=== PATIENT | female | born 1990 | race Caucasian/White ===

== ENCOUNTER → 2016-05-09 | Outpatient (CLI) | payer BC | END | disposition home or self-care (01) | LOC: C.LABMFLN 08:02 | PROVIDERS: ATTEND Obstetrics & Gynecology | DX: Z32.01 Encounter for pregnancy test, result positive (principal) ==

== ENCOUNTER → 2016-06-13 | Outpatient (CLI) | payer BC ==
[2016-06-13 14:25] LABS: URINE APPEARANCE TURBID (CLEAR); URINE BILIRUBIN NEG (NEG); URINE COLOR YELLOW; URINE EPITHELIAL CELL AUTO >30 /lpf (0-5); URINE NITRITE NEG (NEG); URINE PH 7.5 (4.5-7.5); URINE SPECIFIC GRAVITY 1.017 (1.000-1.030); UROBILINOGEN NEG (NEG)
[2016-06-13 14:41] LABS: MANUAL MICROSCOPIC REQUIRED? NO; REVIEW REQ? NO; SULFASALICYLIC ACID NEG (NEG)
[2016-06-16 00:15] LABS: CHLAMYDIA TRACH RNA*** NOT DETECTED (NOT DETECTED); GC (NEIS GONORRHOEAE)RNA** NOT DETECTED (NOT DETECTED)
== END | disposition home or self-care (01) ==
LOC: C.LABSPEC 13:49
PROVIDERS: ATTEND Obstetrics & Gynecology
DX: Z34.81 Encounter for supervision of other normal pregnancy, first trimester (principal); O20.0 Threatened abortion

== ENCOUNTER → 2016-06-13 | Outpatient (CLI) | payer BC | END | disposition home or self-care (01) | LOC: C.PAPS 13:17 | PROVIDERS: ATTEND Obstetrics & Gynecology | DX: Z34.81 Encounter for supervision of other normal pregnancy, first trimester (principal) ==

== ENCOUNTER → 2016-06-15 | Outpatient (CLI) | payer BC ==
[2016-06-15 12:50] LABS: BASO % 0.2 %; BASO ABS # 0.02 K/uL (0-0.2); COMPLETE YES; EOS % 0.7 %; HEMATOCRIT 39.6 % (37-47); IG% 0.1 %; LYMPH % 10.7 %; MEAN CELL VOLUME 82.5 fL (80-100); MEAN CORPUSCULAR HEMOGLOBIN 28.5 pg (25-34); MEAN CORPUSCULAR HGB CONC 34.6 g/dl (32-36); MEAN PLATELET VOLUME 10.9 fL (7.4-10.4); MONO % 7.8 %; NEUT % 80.5 %; PLATELET COUNT 179 K/uL (130-400); WHITE BLOOD COUNT 8.42 K/uL (4.8-10.8)
== END | disposition home or self-care (01) ==
LOC: C.LABMFLN 10:25
PROVIDERS: ATTEND Obstetrics & Gynecology
DX: O20.0 Threatened abortion (principal)

== ENCOUNTER → 2016-10-17 | Outpatient (CLI) | payer BC ==
[~2016-10-17] MED LIST: CETI10TA84 PO; OXYM0.0592 NAE
[2016-10-17 13:12] LABS: GTGD 50 Grams
[2016-10-17 14:28] LABS: URINE APPEARANCE CLEAR (CLEAR); URINE BILIRUBIN NEG (NEG); URINE COLOR YELLOW; URINE EPITHELIAL CELL AUTO >30 /lpf (0-5); URINE NITRITE NEG (NEG); URINE PH 7.5 (4.5-7.5); URINE SPECIFIC GRAVITY 1.017 (1.000-1.030); UROBILINOGEN NEG (NEG)
[2016-10-17 14:32] LABS: MANUAL MICROSCOPIC REQUIRED? NO; REVIEW REQ? NO
== END | disposition home or self-care (01) ==
LOC: C.LAB1850 09:22
PROVIDERS: ATTEND Obstetrics & Gynecology
DX: Z34.83 Encounter for supervision of other normal pregnancy, third trimester (principal)

== ENCOUNTER → 2016-11-13 | Outpatient (CLI) | payer BC | END | disposition home or self-care (01) | LOC: C.LABSPEC 12:24 | PROVIDERS: ATTEND Obstetrics & Gynecology | DX: O62.2 Other uterine inertia (principal) ==

== ENCOUNTER → 2016-11-14 | Outpatient (CLI) | payer BC ==
[2016-11-14 18:29] LABS: URINE TOTAL PROTEIN 21.9 mg/dl (0-11.9)
== END | disposition home or self-care (01) ==
LOC: C.LABMFLN 16:12
PROVIDERS: ATTEND Obstetrics & Gynecology
DX: O12.10 Gestational proteinuria, unspecified trimester (principal)

== ENCOUNTER → 2016-11-15 | Outpatient (CLI) | payer BC ==
[2016-11-15 17:53] LABS: HEMATOCRIT 33.7 % (37-47); MEAN CELL VOLUME 85.3 fL (80-100); MEAN CORPUSCULAR HEMOGLOBIN 27.1 pg (25-34); MEAN CORPUSCULAR HGB CONC 31.8 g/dl (32-36); MEAN PLATELET VOLUME 10.9 fL (7.4-10.4); PLATELET COUNT 181 K/uL (130-400); RED BLOOD COUNT 3.95 M/uL (4.2-5.4); WHITE BLOOD COUNT 8.58 K/uL (4.8-10.8)
[2016-11-15 18:36] LABS: ALT/SGPT 15 U/L (12-78); BLOOD UREA NITROGEN 8 mg/dl (7-18); BUN/CREATININE RATIO 16.1 (10-20); CALCIUM 7.9 mg/dl (8.5-10.1); CARBON DIOXIDE 25 mmol/L (21-32); CHLORIDE 105 mmol/L (98-107); CREATININE 0.49 mg/dl (0.60-1.20); GLUCOSE 109 mg/dl (70-99); POTASSIUM 3.8 mmol/L (3.5-5.1); SODIUM 138 mmol/L (136-145)
[2016-11-15 18:38] LABS: ALB/GLOB RATIO 0.8 (0.9-2); ALKALINE PHOSPHATASE 91 U/L (45-117); AST/SGOT 15 U/L (15-37)
== END | disposition home or self-care (01) ==
LOC: C.LABMFLN 16:22
PROVIDERS: ATTEND Obstetrics & Gynecology
DX: O12.10 Gestational proteinuria, unspecified trimester (principal)

== ENCOUNTER 2017-01-02 18:42 | Inpatient (IN) | payer BC ==
[~2017-01-02] VITALS: Ht 167.6 cm; Wt 67.5 kg
[2017-01-02] MEDS ORDERED: LACTATED RINGER'S 1000ML 1,000 ML IV PRN (18:58)
[2017-01-02] MEDS ORDERED: PENICILLIN G POTASSIUM IV 6 MU in DEXTROSE 5% 250ML 250 ML IV ONE (19:15)
[2017-01-02] MEDS ORDERED: LACTATED RINGER'S 1000ML 1,000 ML IV SCH (19:15)
[2017-01-02] MEDS ORDERED: EpHEDrine SULFATE INJ 50 MG/ML AMP ONE (19:31)
[2017-01-02] MEDS ORDERED: BUPIVACAINE 0.25% 30 ML VIAL ONE (19:31)
[2017-01-02] MEDS ORDERED: FENTANYL CITRATE INJ 50 MCG/1 ML 2 ML VIAL ONE (19:32)
[2017-01-02] MEDS ORDERED: FENTANYL 2MCG/ML ROPIV 1.25MG/ML 100ML BAG EPI ONE (19:32)
[2017-01-02 19:44] LABS: HEMATOCRIT 35.1 % (37-47); MEAN CORPUSCULAR HGB CONC 32.5 g/dl (32-36); MEAN PLATELET VOLUME 11.4 fL (7.4-10.4); PLATELET COUNT 153 K/uL (130-400); RED BLOOD COUNT 4.39 M/uL (4.2-5.4); WHITE BLOOD COUNT 12.86 K/uL (4.8-10.8)
[2017-01-02] MEDS ORDERED: BUTORPHANOL TARTRATE 1 MG/ML VIAL IV ONE (19:45)
[2017-01-02 20:18] VITALS: Ht 167.6 cm; Wt 67.5 kg
[2017-01-02] MEDS ORDERED: LACTATED RINGER'S 1000ML 500 ML IV PRN (20:41)
[2017-01-02] MEDS ORDERED: NALOXONE HCL INJ 1 MG in SODIUM CHLORIDE 0.9% 1000ML 1,000 ML IV PRN (20:41)
[2017-01-02] MEDS ORDERED: FENTANYL 2MCG/ML ROPIV 1.25MG/ML 100ML BAG EPI PRN (20:45)
[2017-01-02] MEDS ORDERED: EpHEDrine SULFATE INJ 50 MG/ML AMP IV PRN (20:45)
[2017-01-02] MEDS ORDERED: NALBUPHINE HCL INJ 10 MG/ML AMP IV PRN (20:45)
[2017-01-02] MEDS ORDERED: ONDANSETRON INJ 2 MG/ML 2 ML VIAL IV PRN (20:45)
[2017-01-02] MEDS ORDERED: DiphenhydrAMINE HCL 50 MG/ML VIAL IV PRN (20:45)
[2017-01-02] MEDS ORDERED: NALOXONE HCL INJ 0.4 MG/1 ML VIAL/CARP IV PRN (20:45)
[2017-01-02] MEDS ORDERED: PENICILLIN G POTASSIUM IV 3 MU in DEXTROSE 5% 100ML 100 ML IV PRN (22:00)
[2017-01-02] MEDS ORDERED: OXYTOCIN 30 UNITS/500ML NSS IV ONE (23:36)
[2017-01-03] MEDS ORDERED: HYDROCORTISONE ACETATE 25 MG SUPP PR PRN (00:30)
[2017-01-03] MEDS ORDERED: SUPERCREAM 0.870 % 15GM JAR EXT PRN (00:30)
[2017-01-03] MEDS ORDERED: ACETAMINOPHEN 325 MG TAB PO PRN (00:30)
[2017-01-03] MEDS ORDERED: LANOLIN OINT EXT PRN ×2 (00:30)
[2017-01-03] MEDS ORDERED: OXYTOCIN 30 UNITS/500ML NSS IV PRN (00:30)
[2017-01-03] MEDS ORDERED: BENZOCAINE 20% AER SPR 82.5 GM CAN EXT PRN (00:30)
[2017-01-03] MEDS: IBUPROFEN 600 MG TAB PO PRN ×5 (00:40→23:12)
--- NOTE | 2017-01-03 00:53 | DELIVERY SUMMARY ---
DATE OF OPERATION: 01/03/2017 PREOPERATIVE DIAGNOSES: 1. Intrauterine at 39 plus weeks. 2. Group B streptococcus positive. 3. Active labor. POSTOPERATIVE DIAGNOSES: Same. PROCEDURES: 1. Epidural anesthesia. 2. Penicillin prophylaxis for group B streptococcus. 3. Amniotomy for clear fluid. 4. Normal spontaneous vaginal delivery. 5. Small left labial laceration with repair. SURGEON: MD Carlyle. ANESTHESIA: Epidural. ESTIMATED BLOOD LOSS: 350 mL. PROCEDURE IN DETAIL: Mayte presented to labor and delivery in active labor with category I strep. She underwent penicillin prophylaxis for GBS and an epidural. After she received her second dose, she was complete. An amniotomy was performed for copious amounts of clear fluid. When she became complete, she pushed for less than 10 minutes to deliver a viable male in PRINCE presentation. The nose and mouth were bulb suctioned on the perineum. There was no nuchal cord. The rest of the infant was then delivered without difficulty. There was immediate cry and the child was bigger, so placed on the maternal abdomen for drying and attention. The cord was clamped and cut at approximately 1 minute of life. Cord blood and segment were obtained. The placenta was delivered spontaneously intact with a 3-vessel cord. Cervix, sulci, rectum, and perineum were examined and found to be intact. A small left labial laceration was repaired with one figure of eight suture of 4-0 Vicryl. All sponge, lap and needle counts were correct x2. Apgars were 9 and 9. Estimated blood loss was 350 mL. Hemostasis with dilute Pitocin, and fundal massage. Mother and baby doing well at the end of the delivery. I attest to the content of the Intraoperative Record and any orders documented therein. Any exception s are noted below.
[2017-01-03 03:25] VITALS: BP 109/69; PULSE 85; TEMP 36.4
--- NOTE | 2017-01-03 07:07 | Progress Note ---
Subjective Jan 03, 2017. Subjective conversation w/ patient, physical exam, lab review Ambulation: ambulating normally Voiding: no voiding problems Passing Gas: Yes Diet Tolerance: Regular Diet Lochia: Small Feeding Type: Breast Feeding Pain: very crampy Objective Vital Signs Date Time Temp Pulse Resp B/P (MAP) Pulse Ox O2 Delivery O2 Flow Rate FiO2 01/03/17 03:25 Room Air 01/03/17 03:25 36.4 85 18 109/69 (82) Room Air Physical Exam General Appearance: WELL-APPEARING, WD/WN, NO APPARENT DISTRESS Abdomen: non tender, soft Fundus: Firm, Non-Tender, Relation to Umbilicus (1 below u) Extremities: non-tender, normal inspection, no pedal edema Laboratory Results Last 24 Hours Test 01/02/17 19:35 White Blood Count 12.86 K/uL Red Blood Count 4.39 M/uL Hemoglobin 11.4 g/dL Hematocrit 35.1 % Mean Corpuscular Volume 80.0 fL Mean Corpuscular Hemoglobin 26.0 pg Mean Corpuscular Hemoglobin Concent 32.5 g/dl RDW Standard Deviation 41.3 fL RDW Coefficient of Variation 14.4 % Platelet Count 153 K/uL Mean Platelet Volume 11.4 fL Assessment and Plan Problem List Medical Problems: (1) Calculus Of Kidney Status: Chronic Post- Day#: 0 Continue Routine Care: Doing well. Routine care.
[2017-01-03 07:17] VITALS: BP 109/72; PULSE 78; TEMP 36.7; O2SAT 97
--- NOTE | 2017-01-03 07:48 | Anesthesia Procedure Note ---
Anesthesia Epidural Removal Nt Date & Time Jan 03, 2017 at 07:48 Vital Signs Pain Intensity: 1.0 Vital Signs Past 12 Hours Date Time Temp Pulse Resp B/P (MAP) Pulse Ox O2 Delivery O2 Flow Rate FiO2 01/03/17 07:17 36.7 78 16 109/72 (84) 97 Room Air 01/03/17 03:25 Room Air 01/03/17 03:25 36.4 85 18 109/69 (82) Room Air Notes Mental Status: alert / awake / arousable, participated in evaluation Nausea / Vomiting: adequately controlled Pain: adequately controlled Airway Patency, RR, SpO2: stable & adequate BP & HR: stable & adequate Hydration State: stable & adequate Neuraxial Anesthesia: was administered Anesthetic Complications: no major complications apparent, pt satisfied with anesthetic care Epidural: removed without complications, with tip intact
[2017-01-03] MEDS: PRENATAL VITAMIN TAB PO SCH (07:51)
[2017-01-03] MEDS: DOCUSATE SODIUM 100 MG CAP PO SCH ×2 (07:52→19:18)
[2017-01-03] MEDS: OXYCODONE/ACETAMINOPHEN 5-325 TAB PO PRN ×4 (10:16→23:12)
[2017-01-03 11:45] VITALS: BP 117/79; PULSE 87; TEMP 36.5; O2SAT 98
[2017-01-03 15:30] VITALS: BP 119/78; PULSE 81; TEMP 36.4
[2017-01-03 19:00] VITALS: BP 127/81; PULSE 89; TEMP 36.6
[2017-01-03 23:50] VITALS: BP 134/78; PULSE 84; TEMP 36.6; O2SAT 97
[2017-01-04] MEDS: IBUPROFEN 600 MG TAB PO PRN (05:57)
[2017-01-04] MEDS: OXYCODONE/ACETAMINOPHEN 5-325 TAB PO PRN (05:58)
[2017-01-04 06:39] LABS: HEMATOCRIT 31.3 % (37-47)
--- NOTE | 2017-01-04 07:23 | Progress Note ---
Subjective Jan 04, 2017. Subjective conversation w/ patient, physical exam, chart review, lab review Ambulation: ambulating normally Voiding: no voiding problems Passing Gas: Yes Diet Tolerance: Regular Diet Lochia: Moderate Feeding Type: Breast Feeding Pain: CONTROLLED Review of Systems Respiratory: No shortness of breath Cardiac: No chest pain Abdomen: No nausea, No vomiting Female : No dysuria Objective Vital Signs Date Time Temp Pulse Resp B/P (MAP) Pulse Ox O2 Delivery O2 Flow Rate FiO2 01/03/17 23:50 36.6 84 18 134/78 (96) 97 Room Air 01/03/17 23:50 97 Room Air 01/03/17 19:00 36.6 89 20 127/81 (96) Room Air 01/03/17 15:30 36.4 81 20 119/78 (92) Room Air 01/03/17 15:30 Room Air 01/03/17 11:45 36.5 87 16 117/79 (92) 98 Room Air 01/03/17 08:00 Room Air Physical Exam General Appearance: WELL-APPEARING, WD/WN, NO APPARENT DISTRESS Respiratory/Chest: lungs clear Cardiovascular: regular rate, rhythm Abdomen: normal bowel sounds, soft Fundus: Firm, Non-Tender, Relation to Umbilicus (3 BELOW U) Extremities: no calf tenderness Laboratory Results Last 24 Hours Test 01/04/17 06:11 Hemoglobin 9.3 g/dL Hematocrit 31.3 % Assessment and Plan Problem List Medical Problems: (1) Calculus Of Kidney Status: Chronic Post- Day#: 1 Continue Routine Care: - Vital Signs reviewed and WNL. - Hemoglobin 9.3 - Blood Type: O+, GBS +, Rubella Immune. - Pt is doing well clinically. - Encourage Ambulation, Monitor and Control pain with Motrin PRN, Resume regular diet, Monitor Lochia - Encourage Breast Feeding. - Pt counselled on discharge instructions THOMAS WOLF PGY1 FM RESIDENT Resident Physician Supervision Note: I interviewed and examined the patient. Discussed with Dr. wolf and agree with findings and plan as documented in the note. Any exceptions or clarifications are listed here: [None] Documented By: Carl Allen Resident Tracking Resident Involvement: Resident Care Provided Care Provided: OB Delivery
--- NOTE | 2017-01-04 07:50 | Discharge Instructions ---
Discharge Instructions Date of Service Jan 04, 2017. Admission Reason for Admission: Check Labor Discharge Discharge Diagnosis / Problem: VAGINAL DELIVERY Discharge Goals Goal(s): Routine recovery after delivery Medications Continue Dispensed Medications: supercream, dermaplast, tucks, lansinoh Activity Recommendations Activity Limitations: per Instructions/Follow-up section . Instructions / Follow-Up Instructions / Follow-Up ACTIVITY RECOMMENDATIONS: * Gradual return to full activity over the next 2-3 weeks. * No lifting - nothing heavier than baby over the next 2-3 weeks. * Do not engage in vigorous exercise, sexual activity or sports until cleared by your physician. * Do not drive or operate any motorized equipment until cleared by your physician. * You may shower/bathe daily. MEDICATIONS: For discomfort or pain, you may use Acetaminophen (Tylenol), Ibuprofen (Advil), or Naproxen (Aleve) following the package directions. For constipation you may use Colace following the package directions. BREAST CARE: If you are not breast feeding: * Wear a supportive bra 24 hours a day for one to two weeks. * Avoid stimulating your breasts and nipples as much as possible during the first few weeks after delivery. * When taking a shower, have the warm water hit your back, not breasts. * When your breasts feel full, apply ice packs. Usually three to four times a day helps ease the discomfort. * Take a mild pain medication (Tylenol / Motrin) when you are uncomfortable. If breast feeding: * Use breast milk to lubricate nipples. Lansinoh cream may be used for sore nipples. You do not need to remove cream prior to breast feeding. If using a different brand of cream, check the label for directions regarding removal of cream prior to nursing. * Wear a supportive bra. * If having problems with breasts or breast feeding, call a data virtualization consultant or your health care provider. EPISIOTOMY CARE: After delivery, if you have an episiotomy (stitches), the following steps will ease discomfort and aid healing. * For the first 24 hours after delivery, place ice packs next to your episiotomy to help reduce swelling. * After the first 24 hour-period, sitz baths, either portable or in the tub, are suggested. A shower with a shower arm sprayed over the episiotomy may be comforting. * Lisa care should be done after each voiding and bowel movement. Squirt warm water from a plastic bottle over the perineum (region of the body between the anus and urinary opening) and pat dry. * Use Dermoplast to ease discomfort. Shake container. [place] directly over the episiotomy. Place a Tucks on a clean sanitary pad next to your episiotomy. SPECIAL CARE INSTRUCTIONS: When you are discharged from the hospital, it is important for you to follow the instructions listed below: * During the first week at home, you should be able to care for yourself and your baby. In addition, the usual light household activities are encouraged. * Limit your activities to the way you feel. Do not try to clean the house or move furniture. Be sensible. * If you actively engage in sports and have done so up until the time of your delivery, you may resume these activities as soon as you feel able. This may take up to one month or even longer. Use good judgment. * Continue to take your vitamins for at least six weeks after the of your baby. * Your diet need not be limited unless you were on a special diet before your delivery. Breast-feeding mothers need around 2500 calories per day and at least 64-80 ounces of fluid per day (8 to 10 glasses). * You should eat foods from the four major food groups. Crash diets or fad diets are to be avoided. Eating lean meats, fresh fruits and vegetables, low-fat dairy products, high fiber foods and a regular exercise program, will help you get back to your pre- weight without putting your health at risk. * Constipation is sometimes a problem after delivery. Take a mild laxative as needed. If breast feeding, Milk of Magnesia is acceptable to use. You may use a suppository or Fleets enema if no episiotomy. * A daily shower or tub bath is suggested. Be sure to thoroughly and gently dry the perineum. * A bloody vaginal discharge will usually continue until around four weeks post . A small amount of bleeding may continue for as long as six weeks. Vaginal discharge changes from the bright red bleeding after delivery to pink then brownish and finally yellowish-pink before becoming white and disappearing. * Bleeding may increase with activity. Your first period may come in 4-8 weeks. If you are breast feeding, your period may be delayed even longer. * [place] (sex) can begin whenever both you and your partner feel comfortable and do not have any form of genital infection. It is recommended that you wait at least six weeks for internal and external healing to occur. If you have questions, please talk to your health care practitioner. A condom should be used to prevent infection and . * Foreplay, gentle intercourse and lubrication is very important the first several times to prevent pain. A water-based lubricant such as K-Y jelly or Astroglide may be used. * If you have RH negative blood and your baby is RH positive, you will receive RHOGAM by injection prior to discharge. The nurse will give you a card to keep with you that has the date and place that you received RHOGAM after delivery. * During your care, you had a Rubella screen done to check for the presence of rubella antibodies in your blood. If your test was negative, you will receive a Rubella vaccine prior to discharge. This vaccine may cause a fever, soreness at the injection site and flu-like symptoms. If these symptoms persist, notify your health care practitioner. is not advised for one month after a Rubella vaccine. * Verbalizes understanding of car seat law as reviewed with patient nursing. * Car Seat hand-out given and reviewed with patient by nursing. * Shaken baby information reviewed with patient by nursing. Call you doctor if: * Heavy bleeding (saturating several pads an hour) or passing clots the size of your fist. * A fever >101 degrees F (38.3 degrees C) on two occasions four hours apart and /or chills. * Unusual pain in the pelvic or vaginal areas. * "Baby Blues" lasting longer than two weeks. If you have any questions or concerns, call your health care practitioner at . FOLLOW UP VISIT: * Please call the office at to schedule a 6 week examination. It is important you keep this appointment. It is important for you to make arrangements for either yearly or twice yearly check-ups thereafter. Current Hospital Diet Patient's current hospital diet: Regular OB Diet Discharge Diet Recommended Diet: Regular Diet Pending Studies Studies pending at discharge: no Medical Emergencies . Who to Call and When: Medical Emergencies: If at any time you feel your situation is an emergency, please call 911 immediately. . Non-Emergent Contact Non-Emergency issues call your: Primary Care Provider . . "Provider Documentation" section prepared by Ermelinda Paz. . VTE Core Measure Inpt VTE Proph given/why not?: Treatment not indicated
[2017-01-04 08:20] VITALS: BP 110/73; PULSE 83; TEMP 36.5
[2017-01-04] MEDS: DOCUSATE SODIUM 100 MG CAP PO SCH (08:45)
[2017-01-04] MEDS: PRENATAL VITAMIN TAB PO SCH (08:45)
== END 2017-01-04 14:20 | disposition home or self-care (01) | DRG 775 ==
LOC: C.OPB 18:42 → C.LD 18:42 → C.OPB 19:00 → C.LD 19:00 → C.OBG 01-03 03:32
PROVIDERS: ADMIT Obstetrics & Gynecology; ATTEND Obstetrics & Gynecology
PROC: 0UQMXZZ Repair Vulva, External Approach (ICD-10-PCS; principal; 2017-01-03)
PROC: 10E0XZZ Delivery of Products of Conception, External Approach (ICD-10-PCS; principal; 2017-01-03)
DX: O99.824 Streptococcus B carrier state complicating childbirth (principal); Z37.0 Single live birth; O70.0 First degree perineal laceration during delivery; O12.14 Gestational proteinuria, complicating childbirth; Z3A.39 39 weeks gestation of pregnancy

== ENCOUNTER → 2017-02-01 | Outpatient (CLI) | payer BC ==
--- NOTE | 2017-02-01 08:54 | DIAGNOSTIC IMAGING REPORT ---
CT SCAN OF THE PARANASAL SINUSES CLINICAL HISTORY: Chronic sinusitis. COMPARISON STUDY: No priors. TECHNIQUE: High-resolution CT scan of the paranasal sinuses is performed. Images are reviewed in the axial, sagittal, and coronal planes. IV contrast was not administered for this examination. The Examination is performed using the fusion protocol. A dose lowering technique was utilized adhering to the principles of ALARA. CT DOSE: 639.48 mGy.cm FINDINGS: Maxillary antra: A 6 mm retention cyst is seen in the right maxillary antrum. Trace dependent mucosal thickening is seen bilaterally. Anterior ethmoid sinuses: Clear. Posterior ethmoid sinuses: Clear. Sphenoid sinuses: Clear. Frontal sinuses: Clear. Ostiomeatal complexes: Patent bilaterally. Frontoethmoidal and sphenoethmoidal recesses: Patent bilaterally. Carotid arteries: The carotid arteries are covered and without septal attachments. Ethmoid roofs: There is slightly asymmetric elevation of the left ethmoid roof as compared to the right. Nasal turbinates: There is joyce bullosa of the right middle nasal turbinate. Nasal septum: There is leftward deviation of the bony nasal septum with large rightward facing spur. Optic nerves: Covered. Orbits: The bony orbits are intact. Orbital contents are normal in appearance. Calvarium: The imaged calvarium is normal in appearance Mastoid air cells: Well pneumatized. Brain parenchyma: Partially visualized brain parenchyma is within normal limits. IMPRESSION: No significant paranasal sinus disease. Electronically signed by: Hiro Sullivan M.D. 02/01/2017 8:52 AM Dictated Date/Time: 02/01/2017 8:48 AM
== END | disposition home or self-care (01) ==
LOC: C.CTS 08:12
DX: J32.9 Chronic sinusitis, unspecified (principal)

== ENCOUNTER → 2017-02-23 | Day surgery (SDC) | payer BC ==
[2017-02-12 10:06] VITALS: Ht 167.6 cm; Wt 58.2 kg
[~2017-02-23] VITALS: Ht 167.6 cm; Wt 58.2 kg
[~2017-02-23] MED LIST changes: +ATROPINE SULFATE 0.1 MG/ML 5ML SYR IV PRN; +CEFAZOLIN 2000MG IV PUSH 10 ML IV SCH; +DEXAMETHASONE SOD INJ 4 MG/ML VIAL ONE; +EpHEDrine SULFATE INJ 50 MG/ML AMP IV PRN; +EpINEphrine INJ 1MG/ML AMP 1 MG/ML AMP ONE; +FENTANYL CITRATE INJ 50 MCG/1 ML 2 ML VIAL IV PRN; +FENTANYL CITRATE INJ 50 MCG/1 ML 2 ML VIAL ONE; +GLYCOPYRROLATE INJ 0.2 MG/ML VIAL ONE; +HYDROCODONE/ACETAMOPHEN 5/325MG TAB PO PRN; +LACTATED RINGER'S 1000ML 1,000 ML IV SCH; +LIDOCAINE 4% MPF SOAK 5 ML = 1 DOSE TOP ONE; +LIDOCAINE HCL 2% 2 ML VIAL (20MG/ML) ONE; +LIDOCAINE/EPINEPHRINE 1% INJ 50 ML VIAL ONE; +MIDAZOLAM HCL 1 MG/ML 2ML VIAL ONE; +NEOSTIGMINE METHYLSULFATE 5 MG/5 ML SYR ONE; +NURSING VERBAL MED ORDER ONE; +ONDANSETRON INJ 2 MG/ML 2 ML VIAL IV PRN; +ONDANSETRON INJ 2 MG/ML 2 ML VIAL ONE; +OXYMETAZOLINE HCL 0.05% NA SPR 15 ML BTL PRN; +OXYMETAZOLINE HCL 0.05% NA SPR 15 ML BTL SCH; +PROPOFOL IV EMULSION 10 MG/ML 20 ML VIAL IV ONE; +SODIUM CHLORIDE 0.9% NEBU SOLN 3 ML NEB ONE
--- NOTE | 2017-02-23 10:00 | History & Physical Bridge - SC ---
H&P Re-Evaluation Bridge Note: I have examined the patient, reviewed the History & Physical and in the interval since the performance of the History & Physical I have noted the following changes of clinical significance: No changes noted
--- NOTE | 2017-02-23 11:20 | [facility] Operative Report ---
Operative Report Operative Date Feb 23, 2017. Pre-Operative Diagnosis Deviated Nasal Septum; Hypertrophy Nasal Turbinates Post-Operative Diagnosis Same Procedure(s) Performed Septoplasty, Bilateral Inferior Turbinate Reduction And Right Ian Bullosa Resection Surgeon Dr. Renae Informatics Application Analyst Surgeon(s) None Estimated Blood Loss 10 mL Findings 1. SEVERE L>R DNS 2. LARGE R IAN BULLOSA 3. SEVERE B ITH Specimens None I attest to the content of the Intraoperative Record and any orders documented therein. Any exceptions are noted below.
--- NOTE | 2017-02-23 11:21 | Discharge Instructions ---
Discharge Instructions Date of Service Feb 23, 2017. Admission Reason for Admission: Off;Ll Discharge Discharge Diagnosis / Problem: SAME Discharge Goals Goal(s): Therapeutic intervention Activity Recommendations Activity Limitations: as noted below LIGHT ACTIVITY FOR 2 WEEKS; NO NOSE BLOWING FOR 2 WEEKS; NO DRIVING WHILE ON [place] . Current Hospital Diet Patient's current hospital diet: Discharge Diet Recommended Diet: Regular Diet Procedures Procedures Performed: Septoplasty, Bilateral Inferior Turbinate Reduction And Right Elvi Bullosa Resection Pending Studies Studies pending at discharge: no Medical Emergencies . Who to Call and When: Medical Emergencies: If at any time you feel your situation is an emergency, please call 911 immediately. . Non-Emergent Contact Non-Emergency issues call your: Surgeon . . "Provider Documentation" section prepared by Jj Renae. . VTE Core Measure Inpt VTE Proph given/why not?: SCD's
--- NOTE | 2017-02-23 11:49 | OPERATIVE REPORT ---
DATE OF OPERATION: 02/23/2017 PREOPERATIVE DIAGNOSES: 1. Left greater than right septal deviation. 2. Right greater than left inferior turbinate hypertrophy. 3. Right joyce bullosa. POSTOPERATIVE DIAGNOSES: 1. Left greater than right septal deviation. 2. Right greater than left inferior turbinate hypertrophy. 3. Right joyce bullosa. PROCEDURES: 1. Septoplasty. 2. Bilateral inferior turbinate outfracture and turbinoplasty. 3. Endoscopic right joyce bullosa resection. SURGEON: Jj Renae MD ANESTHESIA: General endotracheal. ESTIMATED BLOOD LOSS: 10 mL. FINDINGS: 1. Severe left greater than right septal deviation with near 100% obstruction on the left hand side due to primarily cartilaginous deviation and right deviation due to large inferior and posterior septal spur. 2. Right greater than left inferior turbinate hypertrophy. 3. Very large right joyce bullosa. SPECIMENS: None. COMPLICATIONS: None. INDICATIONS FOR THE PROCEDURE: The patient is a very pleasant 26-year-old female with a history of left greater than right nasal airway obstruction, which has not responded to maximal medical therapy with allergy treatment. She was noted to have severe left greater than right septal deviation and right greater than left inferior turbinate hypertrophy as well as right middle turbinate hypertrophy on physical examination. A CT scan of the sinuses was obtained to rule out any concomitant sinonasal pathology. There was no evidence of sinusitis, but the large right joyce bullosa was confirmed. She presents for the above-mentioned procedures on an outpatient elective basis. DESCRIPTION OF PROCEDURE: After informed consent had been obtained from the patient, the patient was wheeled to the operating room and placed on the operating table in the supine position. Monitors were placed. After induction of general endotracheal anesthesia, the patient was prepped in the usual fashion for septoplasty. 1% lidocaine with 1:100,000 epinephrine was used to inject the nasal septum bilaterally, thereby performing hydrodissection of the mucoperichondrial mucoperiosteal flaps. Lidocaine and epinephrine pledgets were then placed into the bilateral nasal cavities and pressure applied. After allowing adequate time for vasoconstriction and anesthesia, the pledgets were removed and a #15 scalpel was used to make a left Al incision, through which the left-sided mucoperichondrial mucoperiosteal flap was elevated. A #15 scalpel was then used to incise the quadrangular cartilage with care to preserve a 1.5-cm dorsal and caudal strut and the right side a mucoperichondrial mucoperiosteal flap was elevated through this cartilaginous incision. A Arturo swivel knife was then used to remove the deviated portion of the quadrangular cartilage. Septal bone was removed posteriorly using Miller-Walker forceps that was impinging on the airway to the left hand side posterior superiorly. There was a large septal spur, which was removed using a V-shaped osteotome, mallet, and Jose forceps. The septal cavity was then suctioned. The septum was found to be midline. The left Al incision was closed with several simple interrupted 4-0 chromic sutures. A 4-0 plain gut suture on the Ron needle was then used to perform a quilting stitch of the mucoperichondrial and mucoperiosteal flaps bilaterally to help prevent septal hematoma. A Reyes elevator was then used to infracture and subsequently outfracture the inferior turbinates bilaterally. These were injected with 1% lidocaine with 1:100,000 epinephrine. A 2.0-mm turbinate blade using powered instrumentation was then used to perform bilateral inferior turbinoplasties in the submucosal fashion. The right middle turbinate was then endoscopically addressed. A 0 degree endoscope was used to visualize the right middle turbinate. This was injected with 1% lidocaine with 1:100,000 epinephrine. A sickle knife was used to incise the right middle turbinate longitudinally and the lateral half of this was removed using straight Daniel-Cut forceps and powered instrumentation. After joyce bullosa resection, the nasal airway was found to be widely patent. Merogel dressing was placed over the right joyce bullosa resection site and also along the inferior turbinoplasty incision sites. An orogastric tube was placed and the stomach suctioned free of air and stomach contents. This marked the end of the case. The patient tolerated the procedure well. There were no apparent complications. The patient was extubated and transferred to recovery room in stable condition. I attest to the content of the Intraoperative Record and any orders documented therein. Any exception s are noted below.
[2017-02-23 13:07] VITALS: TEMP 36.6
[2017-02-23 13:33] VITALS: BP 116/78; PULSE 65; O2SAT 99
--- NOTE | 2017-02-23 13:33 | Anesthesia Progress Nt - [facility] ---
Anesthesia Post Op Note Date & Time Feb 23, 2017 at 13:32 Vital Signs Pain Intensity: 4.0 Vital Signs Past 12 Hours Date Time Temp Pulse Resp B/P (MAP) Pulse Ox O2 Delivery O2 Flow Rate FiO2 02/23/17 13:07 36.6 62 16 108/70 (83) 97 Room Air 02/23/17 12:58 36.7 65 15 113/78 97 Room Air 02/23/17 12:57 62 19 02/23/17 12:57 62 19 97 02/23/17 12:56 113/78 02/23/17 12:52 61 12 99 02/23/17 12:52 61 12 02/23/17 12:51 110/76 02/23/17 12:47 61 10 02/23/17 12:47 61 10 93 02/23/17 12:46 111/72 02/23/17 12:42 63 9 02/23/17 12:42 64 9 95 02/23/17 12:41 112/78 02/23/17 12:37 58 12 02/23/17 12:37 58 12 95 02/23/17 12:36 117/75 02/23/17 12:32 59 15 02/23/17 12:32 59 15 95 02/23/17 12:31 113/71 02/23/17 12:27 55 10 02/23/17 12:27 54 10 100 02/23/17 12:26 112/74 02/23/17 12:22 54 16 02/23/17 12:22 54 16 115/70 100 02/23/17 12:17 63 13 02/23/17 12:17 63 13 100 02/23/17 12:16 113/76 02/23/17 12:12 55 12 02/23/17 12:12 54 12 100 02/23/17 12:11 116/47 02/23/17 12:07 59 22 02/23/17 12:07 57 22 100 02/23/17 12:06 121/76 02/23/17 12:02 88 19 100 02/23/17 12:02 85 19 02/23/17 12:01 125/86 02/23/17 11:57 87 15 100 02/23/17 11:57 87 15 02/23/17 11:56 118/69 02/23/17 11:52 63 21 100 02/23/17 11:52 64 21 02/23/17 11:51 112/76 02/23/17 11:47 66 19 100 02/23/17 11:47 66 19 02/23/17 11:46 112/70 02/23/17 11:42 59 12 99 02/23/17 11:42 61 12 02/23/17 11:41 106/61 02/23/17 11:37 36.3 59 12 106/61 100 Diffusion Mask 02/23/17 08:14 36.4 86 16 116/81 (93) 97 Room Air Notes Mental Status: alert / awake / arousable, participated in evaluation Pt Amnestic to Procedure: Yes Nausea / Vomiting: adequately controlled Pain: adequately controlled Airway Patency, RR, SpO2: stable & adequate BP & HR: stable & adequate Hydration State: stable & adequate Anesthetic Complications: no major complications apparent
== END | disposition home or self-care (01) ==
LOC: X.SURG 08:01
DX: J34.2 Deviated nasal septum (principal); J34.3 Hypertrophy of nasal turbinates; J34.89 Other specified disorders of nose and nasal sinuses